=== PATIENT | male | born 1985 | race Two or more races ===

== ENCOUNTER 2024-09-11 07:53 | Emergency (ER) | payer SELFPAY ==
[~2024-09-11] VITALS: Ht 188 cm; Wt 118.0 kg
[2024-09-11 07:54] VITALS: BP 0/0; PULSE 0; RESP 0; TEMP 98.1; O2SAT 95
== END 2024-09-11 12:00 ==
LOC: EDBD 07:53 → ER 07:53
DX: I46.9 Cardiac arrest, cause unspecified (principal)
CPT/HCPCS: 92950